=== PATIENT | female | born 1960 | race African-American/Black ===

== ENCOUNTER 2019-12-09 16:23 | Emergency (ER) | payer OTHER ==
[~2019-12-09] VITALS: Ht 175.3 cm; Wt 112.0 kg
[~2019-12-09 16:23] MED LIST: COLACE PO; DILT240T12 PO; IMIP50TA2 PO; METR-167 PO; NABU-88 PO; NAPR375T PO; OMEP20CA14 PO; SPIR1TAB26 PO
[2019-12-09] MEDS ORDERED: IBUPROFEN 600MG TABLET PO ONE (22:45)
[2019-12-09] MEDS ORDERED: DIPHENHYDRAMINE 25MG CAPSULE PO ONE (22:45)
[2019-12-09 22:53] LABS: CLARITY URINE CLEAR (CLEAR); COLOR URINE YELLOW (YELLOW); KETONES URINE TRACE (NEGATIVE); LEUKOCYTE ESTERASE URINE NEGATIVE (NEGATIVE); NITRITE URINE NEGATIVE (NEGATIVE); OCCULT BLOOD URINE NEGATIVE (NEGATIVE); PROTEIN URINE NEGATIVE (NEGATIVE); SPECIFIC GRAVITY URINE 1.024 (1.005-1.030)
[2019-12-09 23:04] LABS: *AMPHETAMINES SCREEN URINE PRESUMTIVE POSITIVE (NEGATIVE); *BARBITURATES SCREEN URINE NEGATIVE (NEGATIVE); *BENZODIAZEPINES SCREEN URINE NEGATIVE (NEGATIVE); CANNABINOID URINE SCREEN NEGATIVE (NEGATIVE); OPIATES URINE SCREEN NEGATIVE (NEGATIVE); PHENCYCLIDINE URINE SCREEN NEGATIVE (NEGATIVE)
[2019-12-09 23:05] LABS: *COCAINE SCREEN URINE PRESUMTIVE POSITIVE (NEGATIVE); METHADONE URINE SCREEN NEGATIVE (NEGATIVE)
[2019-12-11 06:00] VITALS: BP 143/90
== END 2019-12-11 10:45 | disposition home or self-care (01) ==
LOC: ER 16:23
DX: F19.10 Other psychoactive substance abuse, uncomplicated (principal); Z59.0 Homelessness; M54.9 Dorsalgia, unspecified; F45.8 Other somatoform disorders; J45.909 Unspecified asthma, uncomplicated; I10 Essential (primary) hypertension; F20.9 Schizophrenia, unspecified
CPT/HCPCS: 72100; 80305; 81003; 82962; 99284; Q0163

== ENCOUNTER 2022-03-22 14:31 | Emergency (ER) | payer OTHER ==
[~2022-03-22] VITALS: Ht 170.2 cm; Wt 80.0 kg
[~2022-03-22 14:31] MED LIST changes: +NABU-137 PO; -NABU-88 PO
[2022-03-22 14:34] VITALS: BP 137/89
[2022-03-22] MEDS ORDERED: ACETAMINOPHEN 325MG TABLET PO STA (14:41)
[2022-03-22] MEDS ORDERED: TOPUD MT (17:15)
== END 2022-03-22 17:16 | disposition home or self-care (01) ==
LOC: ER 14:43
DX: R51.9 Headache, unspecified (principal); J45.909 Unspecified asthma, uncomplicated; I10 Essential (primary) hypertension; F20.9 Schizophrenia, unspecified; F14.10 Cocaine abuse, uncomplicated; Z79.899 Other long term (current) drug therapy
CPT/HCPCS: 99284